=== PATIENT | female | born 1990 | race Caucasian/White ===

== ENCOUNTER 2018-03-20 23:52 | Outpatient (CLI) | payer OTHER ==
[2018-03-21] MEDS: LACTATED RINGER'S 1,000 ML IV ×2 (00:33→01:23)
[2018-03-21] MEDS: TERBUTALINE 1 MG/ML INJ SC (00:38)
[2018-03-21 01:03] LABS: ADD UMIC NO; UR ASCORBIC ACID NEGATIVE (NEGATIVE); UR BILIRUBIN (Dip) NEGATIVE (NEGATIVE); UR BLOOD (Dip) NEGATIVE (NEGATIVE); UR CLARITY CLEAR (CLEAR); UR COLOR YELLOW (YELLOW); UR GLUCOSE (Dip) NEGATIVE (NEGATIVE); UR KETONES (Dip) NEGATIVE (NEGATIVE); UR LEUKOCYTE ESTERASE (Dip) NEGATIVE Leu/ul (NEGATIVE); UR NITRITE (Dip) NEGATIVE (NEGATIVE); UR SPECIFIC GRAVITY (Dip) 1.021 (1.003-1.030); UR TOTAL PROTEIN (Dip) NEGATIVE (NEGATIVE); UR UROBILINOGEN (Dip) 1+ mg/dL (NEGATIVE)
[2018-03-21] MEDS: NIFEdipine 10 MG CAP PO (02:01)
[2018-03-21] MEDS: BETAMET NA PHOS/AC(6 MG/ML) 2 ML INJ SYG IM (02:18)
== END 2018-03-21 05:20 | disposition home or self-care (01) ==
LOC: OBT 23:52 → L-D 23:52 → OBT 03-21 05:20
DX: O62.9 Abnormality of forces of labor, unspecified (principal); Z3A.35 35 weeks gestation of pregnancy
CPT/HCPCS: 76818; 81003; 87086; 96360; 96361; 96372

== ENCOUNTER 2018-03-22 02:52 | Outpatient (CLI) | payer OTHER ==
[2018-03-22] MEDS: BETAMET NA PHOS/AC(6 MG/ML) 2 ML INJ SYG IM (03:48)
== END 2018-03-22 04:33 | disposition home or self-care (01) ==
LOC: OBT 02:52 → L-D 02:54 → OBT 04:33
DX: O62.9 Abnormality of forces of labor, unspecified (principal); Z3A.35 35 weeks gestation of pregnancy
CPT/HCPCS: 36415; 96372

== ENCOUNTER 2018-03-25 18:11 | Outpatient (CLI) | payer OTHER ==
[2018-03-25 20:19] LABS: ADD MAN DIFF? NO
[2018-03-25 20:21] LABS: WHITE BLOOD COUNT 9.8 10^3/ul (4.8-10.8)
[2018-03-25 20:21] LABS: BASOPHILS % 0.3 % (0.0-2.0); EOSINOPHILS # 0.1 10^3/ul (0.0-0.5); EOSINOPHILS % 0.8 % (0.0-7.0); HEMOGLOBIN 10.8 g/dl (12.0-16.0); LYMPHOCYTES # 2.7 10^3/ul (0.8-2.9); LYMPHOCYTES % 27.6 % (15.0-51.0); MEAN CORPUSCULAR HEMOGLOBIN 27.3 pg (29.0-33.0); MEAN CORPUSCULAR HGB CONC 31.8 g/dl (32.0-37.0); MEAN CORPUSCULAR VOLUME 85.9 fl (82.0-101.0); MEAN PLATELET VOLUME 12.3 fl (7.4-10.4); MONOCYTE # 0.7 10^3/ul (0.3-0.9); NEUTROPHIL # 6.2 10^3/ul (1.6-7.5); NEUTROPHILS % 63.5 % (39.0-77.0); NUCLEATED RED BLOOD CELLS% 0.3 /100WBC (0.0-0.0); PLATELET COUNT 155 10^3/UL (140-415); RED BLOOD COUNT 3.96 10^6/ul (4.20-5.40); RED CELL DISTRIBUTION WIDTH 14.8 % (11.5-14.5)
[2018-03-25 20:26] LABS: ADD UMIC YES; UR ASCORBIC ACID NEGATIVE (NEGATIVE); UR BILIRUBIN (Dip) NEGATIVE (NEGATIVE); UR BLOOD (Dip) NEGATIVE (NEGATIVE); UR CLARITY CLEAR (CLEAR); UR COLOR YELLOW (YELLOW); UR GLUCOSE (Dip) NEGATIVE (NEGATIVE); UR KETONES (Dip) NEGATIVE (NEGATIVE); UR LEUKOCYTE ESTERASE (Dip) TRACE Leu/ul (NEGATIVE); UR MUCUS FEW /HPF (NONE SEEN); UR NITRITE (Dip) NEGATIVE (NEGATIVE); UR RBC 0 /HPF (0-5); UR SPECIFIC GRAVITY (Dip) 1.029 (1.003-1.030); UR SQUAMOUS EPITHELIAL CELL FEW /HPF (FEW); UR TOTAL PROTEIN (Dip) NEGATIVE (NEGATIVE); UR UROBILINOGEN (Dip) 2+ mg/dL (NEGATIVE); UR WBC 2 /HPF (0-5)
[2018-03-25] MEDS: TERBUTALINE 1 MG/ML INJ SC ×2 (21:42→23:00)
[2018-03-25] MEDS: LACTATED RINGER'S 1,000 ML IV ×2 (22:11→23:04)
== END 2018-03-25 23:38 | disposition home or self-care (01) ==
LOC: OBT 18:11 → L-D 18:12
DX: O60.03 Preterm labor without delivery, third trimester (principal); Z3A.35 35 weeks gestation of pregnancy
CPT/HCPCS: 36415; 76815; 76818; 81001; 85025; 87086; 96360; 96372

== ENCOUNTER 2018-04-18 09:26 | Inpatient (IN) | payer OTHER ==
[2018-04-18] MEDS ORDERED: BUTORPHANOL 2 MG INJ IV (10:00)
[2018-04-18] MEDS ORDERED: CARBOPROST 250 MCG INJ IM (10:00)
[2018-04-18] MEDS ORDERED: MISOPROSTOL 200 MCG TAB PR (10:00)
[2018-04-18] MEDS ORDERED: OXYTOCIN 30 UNITS/LR 500 ML IV ×2 (10:00)
[2018-04-18] MEDS ORDERED: IBUPROFEN 600 MG TAB PO (10:00)
[2018-04-18] MEDS ORDERED: LIDOCAINE 1% (MPF) 30 ML INJ INJ (10:00)
[2018-04-18] MEDS ORDERED: METHYLERGONOVINE 0.2 MG INJ IM (10:00)
[2018-04-18] MEDS: LACTATED RINGER'S 1,000 ML IV ×3 (10:02→17:09)
[2018-04-18 10:41] LABS: ADD MAN DIFF? NO
[2018-04-18 10:46] LABS: BASOPHILS % 0.3 % (0.0-2.0); EOSINOPHILS # 0.1 10^3/ul (0.0-0.5); EOSINOPHILS % 1.5 % (0.0-7.0); HEMATOCRIT 33.2 % (37.0-47.0); HEMOGLOBIN 10.3 g/dl (12.0-16.0); MEAN CORPUSCULAR HEMOGLOBIN 25.9 pg (29.0-33.0); MEAN CORPUSCULAR VOLUME 83.6 fl (82.0-101.0); MEAN PLATELET VOLUME 13.6 fl (7.4-10.4); MONOCYTE # 0.4 10^3/ul (0.3-0.9); MONOCYTES % 6.4 % (0.0-11.0); NEUTROPHILS % 60.9 % (39.0-77.0); NUCLEATED RED BLOOD CELLS% 0.3 /100WBC (0.0-0.0); PLATELET COUNT 125 10^3/UL (140-415); RED BLOOD COUNT 3.97 10^6/ul (4.20-5.40); RED CELL DISTRIBUTION WIDTH 16.3 % (11.5-14.5)
[2018-04-18 10:46] LABS: WHITE BLOOD COUNT 6.6 10^3/ul (4.8-10.8)
[2018-04-18 10:52] LABS: POSITIVE DIFF @See below
[2018-04-18 11:08] LABS: INR 0.91; PROTIME 12.3 Sec (11.9-14.9)
[2018-04-18 11:09] LABS: PARTIAL THROMBOPLASTIN TIME 20.3 Sec (23.0-35.0)
[2018-04-18 11:43] LABS: HEPATITIS B SURFACE ANTIGEN NEGATIVE (NEGATIVE)
[2018-04-18] MEDS: OXYTOCIN 30 UNITS/LR 500 ML IV ×2 (11:52→22:10)
[2018-04-18 12:47] LABS: ADD UMIC YES; UR ASCORBIC ACID NEGATIVE (NEGATIVE); UR BILIRUBIN (Dip) NEGATIVE (NEGATIVE); UR BLOOD (Dip) NEGATIVE (NEGATIVE); UR CLARITY CLEAR (CLEAR); UR COLOR YELLOW (YELLOW); UR GLUCOSE (Dip) NEGATIVE (NEGATIVE); UR KETONES (Dip) NEGATIVE (NEGATIVE); UR LEUKOCYTE ESTERASE (Dip) TRACE Leu/ul (NEGATIVE); UR MUCUS FEW /HPF (NONE SEEN); UR NITRITE (Dip) NEGATIVE (NEGATIVE); UR RBC 1 /HPF (0-5); UR SPECIFIC GRAVITY (Dip) 1.023 (1.003-1.030); UR TOTAL PROTEIN (Dip) NEGATIVE (NEGATIVE); UR UROBILINOGEN (Dip) NEGATIVE (NEGATIVE); UR WBC 0 /HPF (0-5)
[2018-04-18 15:54] LABS: RAPID PLASMA REAGIN NONREACTIVE (NR)
[2018-04-18] MEDS ORDERED: MINERAL OIL LIGHT 10 ML VIAL TOP (16:00)
[2018-04-18] MEDS ORDERED: FENTAnyl 2MCG/ML-ROPIV 0.2% 100 ML (16:41)
[2018-04-18] MEDS ORDERED: NALOXONE (0.4 MG/ML) INJ IV (20:30)
[2018-04-18] MEDS ORDERED: FENTAnyl 2MCG/ML-ROPIV 0.2% 100 ML BAG EPI (20:30)
[2018-04-19] MEDS ORDERED: METHYLERGONOVINE 0.2 MG INJ IM (01:00)
[2018-04-19] MEDS ORDERED: BENZOCAINE 20% 56 ML SPRAY TOP (01:00)
[2018-04-19] MEDS ORDERED: MISOPROSTOL 200 MCG TAB PR (01:00)
[2018-04-19] MEDS ORDERED: ZOLPIDEM 5 MG TAB PO (01:00)
[2018-04-19] MEDS ORDERED: LANOLIN HPA 1 PKT TOP (01:00)
[2018-04-19] MEDS ORDERED: CARBOPROST 250 MCG INJ IM (01:00)
[2018-04-19] MEDS ORDERED: OXYTOCIN 30 UNITS/LR 500 ML IV (01:00)
[2018-04-19] MEDS ORDERED: DIBUCAINE 1% 30 GM OINT TOP (01:00)
[2018-04-19] MEDS ORDERED: HYDROCODONE/APAP (5/325) TAB PO ×2 (01:00)
[2018-04-19] MEDS: ACETAMINOPHEN 1000MG/100ML IV 100 ML IVPB (01:08)
[2018-04-19] MEDS: LACTATED RINGER'S 1,000 ML IV* (02:37)
[2018-04-19] MEDS: CEPHALEXIN 500 MG CAP PO ×4 (05:48→23:36)
[2018-04-19] MEDS: IBUPROFEN 600 MG TAB PO ×4 (05:48→23:36)
[2018-04-19] MEDS: MAGNESIUM HYDROXIDE 30ML CUP PO ×2 (09:00→20:30)
[2018-04-19] MEDS: SENNA/DOCUSATE NA (8.6MG/50MG) TAB PO ×2 (09:00→20:30)
[2018-04-19 09:30] LABS: ADD MAN DIFF? NO
[2018-04-19 09:52] LABS: WHITE BLOOD COUNT 8.8 10^3/ul (4.8-10.8)
[2018-04-19 09:52] LABS: ABNORMAL IP MESSAGE 1; BASOPHILS % 0.2 % (0.0-2.0); EOSINOPHILS # 0.1 10^3/ul (0.0-0.5); EOSINOPHILS % 1.1 % (0.0-7.0); HEMATOCRIT 30.2 % (37.0-47.0); HEMOGLOBIN 9.4 g/dl (12.0-16.0); LYMPHOCYTES # 2.2 10^3/ul (0.8-2.9); LYMPHOCYTES % 24.3 % (15.0-51.0); MEAN CORPUSCULAR HEMOGLOBIN 26.3 pg (29.0-33.0); MEAN CORPUSCULAR HGB CONC 31.1 g/dl (32.0-37.0); MEAN CORPUSCULAR VOLUME 84.6 fl (82.0-101.0); MEAN PLATELET VOLUME 13.2 fl (7.4-10.4); MONOCYTE # 0.7 10^3/ul (0.3-0.9); MONOCYTES % 7.6 % (0.0-11.0); NEUTROPHIL # 5.9 10^3/ul (1.6-7.5); NEUTROPHILS % 66.3 % (39.0-77.0); PLATELET COUNT 112 10^3/UL (140-415); RED BLOOD COUNT 3.57 10^6/ul (4.20-5.40); RED CELL DISTRIBUTION WIDTH 16.1 % (11.5-14.5)
[2018-04-19 10:03] LABS: POSITIVE DIFF @See below
[2018-04-20] MEDS: CEPHALEXIN 500 MG CAP PO ×2 (05:47→11:25)
[2018-04-20] MEDS: IBUPROFEN 600 MG TAB PO ×2 (05:47→11:26)
[2018-04-20] MEDS: MAGNESIUM HYDROXIDE 30ML CUP PO (09:12)
[2018-04-20] MEDS: DIPHTH/TET/ACEL PERTUSS (ADULT) 0.5 ML VIAL IM* (09:12)
[2018-04-20] MEDS: SENNA/DOCUSATE NA (8.6MG/50MG) TAB PO (09:12)
[2018-04-20] MEDS: MEASLES,MUMPS,RUBELLA VACCINE INJ SC* (09:13)
[2018-04-20] MEDS: VARICELLA VACCINE LIVE/PF 1,350 UNIT/0.5 ML ML SC* (09:13)
[2018-04-20] MEDS: WITCH HAZEL/GLYCERIN PAD PR (09:22)
== END 2018-04-20 17:34 | disposition home or self-care (01) | DRG 807 ==
LOC: L-D 09:26 → PP1 04-19 00:14
PROVIDERS: Obstetrics & Gynecology
PROC: 10E0XZZ Delivery of Products of Conception, External Approach (ICD-10-PCS; principal; 2018-04-18 09:00)
DX: O80 Encounter for full-term uncomplicated delivery (principal); Z37.0 Single live birth; Z3A.39 39 weeks gestation of pregnancy
CPT/HCPCS: 62319; 76815; 81001; 85025; 85610; 85730; 86592; 86850; 86900; 86901; 87086; 87340; 90716